=== PATIENT | female | born 1975 | race Caucasian/White ===

== ENCOUNTER 2024-04-11 06:15 | Day surgery (SDC) | payer SELFPAY ==
[2024-04-09 12:06] VITALS: BMI 20.6
[2024-04-11] MEDS ORDERED: SUCCINYLCHOLINE CHLORIDE 200 MG/10 ML SYRINGE ONE (07:20)
[2024-04-11] MEDS ORDERED: ROCURONIUM BROMIDE 50 MG/5 ML SYRINGE ONE ×2 (07:20→10:33)
[2024-04-11] MEDS ORDERED: SEVOFLURANE 250 ML BTL ONE (07:21)
[2024-04-11] MEDS ORDERED: KETOROLAC TROMETHAMINE 30 MG/1 ML VIAL ONE (07:24)
[2024-04-11] MEDS ORDERED: DEXAMETHASONE SOD PHOSPHATE 4 MG/1 ML VIAL ONE (07:24)
[2024-04-11] MEDS ORDERED: METOCLOPRAMIDE HCL INJECTION 10 MG/2 ML VIAL ONE (07:24)
[2024-04-11] MEDS ORDERED: ONDANSETRON 4 MG/2 ML VIAL ONE (07:24)
[2024-04-11] MEDS ORDERED: LIDOCAINE HCL/PF 2% SDV 5ML VIAL ONE ×2 (07:24→11:30)
[2024-04-11] MEDS ORDERED: ceFAZolin SODIUM 1 GM VIAL ONE (07:24)
[2024-04-11] MEDS ORDERED: PROPOFOL 20 ML ONE ×2 (07:25→10:20)
[2024-04-11] MEDS ORDERED: BACITRACIN ZINC 15 GM TUBE TOPICAL OINTMENT ONE (07:25)
[2024-04-11] MEDS ORDERED: BUPIVACAINE HCL/PF 0.25% (2.5MG/ML) 10 ML VIAL ONE (07:25)
[2024-04-11] MEDS ORDERED: MIDAZOLAM HCL 2 MG/2 ML SINGLE DOSE VIAL ONE (07:26)
[2024-04-11] MEDS ORDERED: SODIUM CHLORIDE 0.9% P/F 10 ML VIAL IJ ONE (07:26)
[2024-04-11] MEDS ORDERED: HYDROmorphone HCL/PF 1 MG/ML VIAL ONE (07:26)
[2024-04-11] MEDS ORDERED: LIDOCAINE 1%/EPI 1:100000 (20 ML MULTI DOSE VIAL) ONE (07:26)
[2024-04-11] MEDS ORDERED: ACETAMINOPHEN INJECTION 100 ML IVPB ONE (07:51)
[2024-04-11] MEDS ORDERED: ONDANSETRON 4 MG/2 ML VIAL IVPUSH PRN (08:53)
[2024-04-11] MEDS ORDERED: oxyCODONE HCL 5 MG TABLET PO PRN ×2 (08:53)
[2024-04-11] MEDS ORDERED: LACTATED RINGERS SOLUTION 1,000 ML IV SCH (09:00)
[2024-04-11] MEDS ORDERED: GLYCOPYRROLATE 0.2 MG/1 ML VIAL ONE (10:00)
[2024-04-11] MEDS ORDERED: SUGAMMADEX SODIUM 200 MG/2 ML VIAL ONE (10:34)
[2024-04-11 14:27] VITALS: TEMP 97.2
[2024-04-11 14:49] VITALS: BP 95/50; PULSE 52; RESP 20
== END 2024-04-11 14:30 | disposition home or self-care (01) ==
LOC: FASU 06:15
PROVIDERS: ATTEND Surgery
CPT/HCPCS: 81025; 94760; J0131